=== PATIENT | male | born 1970 | race Caucasian/White ===

== ENCOUNTER 2021-08-25 17:34 | Emergency (ER) | payer MEDICARE ==
[~2021-08-25] VITALS: Ht 182.8 cm; Wt 95.3 kg
--- NOTE | 2021-08-25 19:00 | ED Integumentary General ---
General Chief Complaint: Skin/Wound Problems Stated Complaint: SPIDER BITE ON BACK Nursing Triage Note: PT AMB TRIAGE WITH COMPLAINT OF SPIDER BITE ON MID BACK. STATES HAPPENED TWO MONTHS AGO AND WAS TOLD BY PCP TO PUT WARM COMPRESSES ON IT. STATES SYMPTOMS ARE WORSENING. Source: patient, spouse Exam Limitations: no limitations History of Present Illness Date Seen by Provider: Aug 25, 2021 Time Seen by Provider: 18:31 Initial Comments Patient ER by private conveyance from home with chief complaint of abscess for the past month on his left back. He went to the [place] [facility] and had it drained about 3 weeks ago. They did not put him on antibiotics. He does not have any immunocompromise diabetes or take any compromising medications. It has continued to persist and recur. She has been draining it with peroxide soaked sewing needles about every 3 to 4 days. No fevers or chills. Allergies and Home Medications Allergies Coded Allergies: pramipexole (Verified Allergy, Unknown, 08/25/21) Patient Home Medication List Home Medication List Reviewed: Yes Review of Systems Review of Systems Constitutional: No chills, No diaphoresis EENTM: No ear discharge, No ear pain Respiratory: No cough, No short of breath Cardiovascular: No chest pain, No palpitations Gastrointestinal: No abdominal pain, No nausea Genitourinary: No discharge, No dysuria All Other Systems Reviewed Negative Unless Noted: Yes Past Fvmrpxo-Wwkezt-Xeblcc Hx Patient Social History Tobacco Use?: Yes Tobacco type used: Cigarettes Smoking Status: Current Everyday Smoker Substance use?: No Alcohol Use?: Yes Alcohol Frequency: Once in a while Pt feels they are or have been: No Immunizations Up To Date Influenza Vaccine Up-to-Date: No; Not Current Physical Exam Vital Signs Vital Signs - First Documented 08/25/21 17:59 Pulse 92 Resp 16 B/P (MAP) 158/100 (119) Pulse Ox 97 O2 Delivery Room Air Capillary Refill : Less Than 3 Seconds General Appearance: WD/WN, no apparent distress HEENT: PERRL/EOMI, pharynx normal Neck: full range of motion, normal inspection Cardiovascular: normal peripheral pulses, regular rate, rhythm Respiratory: no respiratory distress, no accessory muscle use Neurologic/Psychiatric: alert, normal mood/affect, oriented x 3 Skin: other (Dusky erythematous raised smooth nodule proximately 2 to 3 cm diameter over the left back just left of T8- 10.) Procedures/Interventions I&D : Site: Left back Blade Size: 11 I & D Procedure: betadine prep (Chlorhexidine and alcohol) Progress Wound was infiltrated with 1/2 cc of 1% lidocaine after being thoroughly cleaned. When the skin was anesthetized we made a 1 cm x 1 cm crosswise incision draining about 15 cc of thin purulent material. Loculations were broke up with a sterile cotton swab after a sterile wound culture swab was obtained. Patient tolerated the procedure. Progress/Results/Core Measures Results/Orders My Orders Orders - GINA SHOOK Wound Culture (08/25/21 18:54) Vital Signs/I&O 08/25/21 17:59 Pulse 92 Resp 16 B/P (MAP) 158/100 (119) Pulse Ox 97 O2 Delivery Room Air Blood Pressure Mean: 119 Progress Progress Note : Time: 18:57 Progress Note Recurrent abscess. Wound culture obtained and sent. We will put him on Bactrim for a week. Departure Impression Primary Impression: Abscess Disposition: HOME, SELF-CARE Condition: Stable Departure-Patient Inst. Decision time for Depature: 19:03 Referrals: NO,LOCAL PHYSICIAN (PCP/Family) Primary Care Physician Patient Instructions: Abscess Drainage, Percutaneous (DC) Add. Discharge Instructions: Keep the wound clean regular soap and water. Change the gauze dressing at least daily or more frequently if it becomes soiled. Do not put peroxide, alcohol, iodine or chlorhexidine on the wound as this will prolong wound healing. Bactrim 1 tablet twice a day for the next week to prevent recurrent infections. Take with food. Return to the ER or your primary care doctor for recurrent abscess. All discharge instructions reviewed with patient and/or family. Voiced understanding. Scripts Sulfamethoxazole/Trimethoprim (Bactrim Ds Tablet) 1 Each Tablet 1 EACH PO BID for 7 Days, #14 TAB 0 Refills Prov: GINA SHOOK 08/25/21 Work/School Note: Work Release Form Date Seen in the Emergency Department: Aug 25, 2021 Return to Work: Aug 28, 2021 Restrictions: No Restrictions GINA SHOOK Aug 25, 2021 19:00
[2021-08-25] MEDS ORDERED: SULF1TAB38 PO (19:04)
[2021-08-25 19:56] VITALS: BP 158/100
== END 2021-08-25 19:13 | disposition home or self-care (01) ==
LOC: EDUNIT# 17:34 → ER 17:38
DX: L02.212 Cutaneous abscess of back [any part, except buttock and flank] (principal); F17.210 Nicotine dependence, cigarettes, uncomplicated
CPT/HCPCS: 87070; 87077; 87186; 87205; 99282

== ENCOUNTER 2021-09-07 18:05 | Emergency (ER) | payer MEDICARE ==
[~2021-09-07] VITALS: Ht 182.8 cm; Wt 96.6 kg
[~2021-09-07 18:05] MED LIST: SULF1TAB38 PO
[2021-09-07] MEDS ORDERED: RX-ALBUTEROL INHALER 8.5 GM HFA (PROAIR) IH STA (19:45)
[2021-09-07] MEDS ORDERED: predniSONE 20 MG TAB PO ONE (19:45)
[2021-09-07] MEDS ORDERED: AZITHROMYCIN 250 MG TAB (ZITHROMAX) PO SCH (19:45)
[2021-09-07] MEDS ORDERED: AZIT250T PO (19:51)
[2021-09-07] MEDS ORDERED: PRD20T PO (19:51)
--- NOTE | 2021-09-07 19:52 | ED Cough/URI ---
General Chief Complaint: Respiratory Problems Stated Complaint: SOA / BODY ACHES / CONGESTION Source: patient Exam Limitations: no limitations History of Present Illness Date Seen by Provider: Sep 07, 2021 Time Seen by Provider: 19:50 Initial Comments To ER with a productive cough shortness of breath congestion no fevers. He does smoke cigarettes. Timing/Duration: just prior to arrival, getting worse Severity/Quality: productive cough Associated Symptoms: cough Allergies and Home Medications Allergies Coded Allergies: pramipexole (Verified Allergy, Unknown, 08/25/21) Patient Home Medication List Home Medication List Reviewed: Yes Sulfamethoxazole/Trimethoprim (Bactrim Ds Tablet) 1 Each Tablet, 1 EACH PO BID Prescribed by: GINA SHOOK on 08/25/211903 Review of Systems Review of Systems Constitutional: see HPI EENTM: see HPI Respiratory: see HPI, cough Cardiovascular: no symptoms reported Genitourinary: no symptoms reported Musculoskeletal: no symptoms reported Skin: no symptoms reported Physical Exam Capillary Refill : Height: '" Weight: lbs. oz. kg; 28.00 BMI Method: General Appearance: WD/WN, no apparent distress Eyes: Bilateral Eye Normal Inspection, Bilateral Eye PERRL, Bilateral Eye EOMI Respiratory: lungs clear, normal breath sounds, no respiratory distress, no accessory muscle use Gastrointestinal: normal bowel sounds, non tender, soft Extremities: normal range of motion, non-tender Neurologic/Psychiatric: alert, normal mood/affect, oriented x 3 Skin: normal color, warm/dry Progress/Results/Core Measures Suspected Sepsis SIRS Temperature: Pulse: Respiratory Rate: Blood Pressure / Mean: Results/Orders Lab Results Laboratory Tests Test 09/07/21 18:45 Range/Units SARS-CoV-2 RNA (RT-PCR) Not Detected Not Detecte My Orders Orders - CAROLA MCKEON APRN Covid 19 Inhouse Test (09/07/21 18:34) Chest 1 View, Ap/Pa Only (09/07/21 18:55) Rx-Albuterol Inhaler (Rx-Ventolin Hfa In (09/07/21 19:45) Prednisone Tablet (Deltasone Tablet) (09/07/21 19:45) Azithromycin Tablet (Zithromax Tablet) (09/07/21 19:45) Vital Signs/I&O Capillary Refill : Departure Impression Primary Impression: Bronchitis Disposition: 01 HOME, SELF-CARE Condition: Stable Departure-Patient Inst. Decision time for Depature: 19:51 Referrals: NO,LOCAL PHYSICIAN (PCP/Family) Primary Care Physician Patient Instructions: Acute Bronchitis Scripts Prednisone (Prednisone) 20 Mg Tab 40 MG PO DAILY, #6 TAB 0 Refills Prov: CAROLA MCKEON APRN 09/07/21 Azithromycin (Zithromax) 250 Mg Tablet 250 MG PO UD, #3 TAB TAKE 2 TABLETS TODAY, THEN TAKE 1 TABLET DAILY FOR 4 MORE DAYS Prov: CAROLA MCKEON APRN 09/07/21 CAROLA MCKEON APRN Sep 07, 2021 19:51
--- NOTE | 2021-09-07 20:09 | Diagnostic Imaging Report ---
INDICATION: Cough Frontal chest obtained at 8:02 hours p.m. Heart is borderline in size. There is minimal central vascular prominence. There is no focal infiltrate or pneumothorax or pleural fluid. IMPRESSION: Borderline heart size with minimal central vascular prominence. No focal infiltrate or pleural fluid. Dictated by: Dictated on workstation # [id number]
[2021-09-07 20:12] VITALS: BP 165/96
== END 2021-09-07 20:12 | disposition home or self-care (01) ==
LOC: EDUNIT# 18:05 → ER 18:09
DX: J40 Bronchitis, not specified as acute or chronic (principal); F17.210 Nicotine dependence, cigarettes, uncomplicated; Z20.822 Contact with and (suspected) exposure to COVID-19
CPT/HCPCS: 71045; 87636

== ENCOUNTER 2021-11-06 12:33 | Emergency (ER) | payer MEDICARE ==
[~2021-11-06] VITALS: Ht 185.5 cm; Wt 108.0 kg
[~2021-11-06 12:33] MED LIST changes: +AZIT250T PO; +PRD20T PO
[2021-11-06 13:13] LABS: BASOPHILS # (AUTO) 0.1 10^3/uL (0.0-0.1); BASOPHILS % (AUTO) 1 % (0-10); EOSINOPHILS # (AUTO) 0.3 10^3/uL (0.0-0.3); EOSINOPHILS % (AUTO) 3 % (0-10); HEMATOCRIT 50 % (40-54); HEMOGLOBIN 16.6 g/dL (13.3-17.7); LYMPHOCYTES # (AUTO) 2.1 10^3/uL (1.0-4.0); LYMPHOCYTES % (AUTO) 19 % (12-44); MEAN CORPUSCULAR HEMOGLOBIN 29 pg (25-34); MEAN CORPUSCULAR HGB CONC 33 g/dL (32-36); MEAN CORPUSCULAR VOLUME 87 fL (80-99); MEAN PLATELET VOLUME 9.7 fL (9.0-12.2); MONOCYTES # (AUTO) 0.7 10^3/uL (0.0-1.0); MONOCYTES % (AUTO) 6 % (0-12); NEUTROPHILS # (AUTO) 8.1 10^3/uL (1.8-7.8); NEUTROPHILS % (AUTO) 72 % (42-75); PLATELET COUNT 274 10^3/uL (130-400); WHITE BLOOD COUNT 11.3 10^3/uL (4.3-11.0)
[2021-11-06] MEDS ORDERED: LACTATED RINGERS 1,000 ML IV ONE (13:15)
[2021-11-06 13:26] LABS: ALBUMIN 4.5 GM/DL (3.2-4.5); POTASSIUM 4.4 MMOL/L (3.6-5.0)
[2021-11-06 13:28] LABS: CALCIUM 9.4 MG/DL (8.5-10.1)
[2021-11-06 13:29] LABS: PROTHROMBIN TIME PATIENT 13.7 SEC (12.2-14.7); TOTAL PROTEIN 7.8 GM/DL (6.4-8.2)
[2021-11-06 13:31] LABS: BILIRUBIN,TOTAL 0.4 MG/DL (0.1-1.0)
[2021-11-06 13:33] LABS: CREATININE SERUM 0.78 MG/DL (0.60-1.30)
[2021-11-06 13:35] LABS: MAGNESIUM 1.9 MG/DL (1.6-2.4)
--- NOTE | 2021-11-06 14:21 | Diagnostic Imaging Report ---
CLINICAL INDICATION: Patient with chest pain and complaints of shortness of air and decreased appetite. EXAM: Portable chest x-ray upright view. COMPARISON: Chest x-ray dated 09/07/2021. FINDINGS: Lungs/pleura: Lungs are clear. There is no pneumothorax. There is no pleural effusion. Mediastinum: Unremarkable. Pulmonary vasculature: Unremarkable. Heart: Unremarkable. Bones/extrathoracic soft tissue: Unremarkable. IMPRESSION: There is no radiographic evidence of acute cardiopulmonary process. Dictated by: Dictated on workstation # [id number]
[2021-11-06 14:52] LABS: BILIRUBIN,URINE NEGATIVE (NEGATIVE); CLARITY,URINE CLEAR; COLOR,URINE YELLOW; GLUCOSE, URINE (UA) NEGATIVE (NEGATIVE); KETONES,URINE NEGATIVE (NEGATIVE); LEUKOCYTE ESTERASE ,URINE NEGATIVE (NEGATIVE); NITRITE,URINE NEGATIVE (NEGATIVE); PROTEIN,URINE NEGATIVE (NEGATIVE)
[2021-11-06 15:05] LABS: BACTERIA,URINE NEGATIVE /HPF; WBC,URINE RARE /HPF
[2021-11-06] MEDS ORDERED: SULF1TAB38 PO (16:07)
--- NOTE | 2021-11-06 16:07 | ED General ---
General Chief Complaint: General Problems/Pain Stated Complaint: DIZZY, R SIDE NUMBNESS, EXHAUSTED Nursing Triage Note: PT AMB TO [facility] 1 W C/O SOA, DECREASED APPETITE, AND DIZZINESS SX SUNDAY. PT ALSO C/O RT SIDE FACIAL NUMBNESS AND FATIGUE X1 MONTH. PT REPORTS HE HAS A "BITE" ON HIS BACK X6 MONTHS THAT HAS BEEN DRAINED HERE AND "KEEPS FILLING BACK UP." PT REPORTS HE TRAVELED TO [place] THIS PAST WEEK. DENIES PAIN, A&OX4. Source of Information: Patient Exam Limitations: No Limitations Allergies and Home Medications Allergies Coded Allergies: pramipexole (Verified Allergy, Unknown, 08/25/21) Patient Home Medication List Azithromycin (Zithromax) 250 Mg Tablet, 250 MG PO UD Prescribed by: CAROLA MCKEON on 09/07/211950 Prednisone (Prednisone) 20 Mg Tab, 40 MG PO DAILY Prescribed by: CAROLA MCKEON on 09/07/211950 Sulfamethoxazole/Trimethoprim (Bactrim Ds Tablet) 1 Each Tablet, 1 EACH PO BID Prescribed by: GINA SHOOK on 08/25/211903 Sulfamethoxazole/Trimethoprim (Bactrim Ds Tablet) 1 Each Tablet, 1 EACH PO BID Prescribed by: AMILCAR DONOVAN on 11/06/21 1607 Past Wjqqcww-Nbbwcb-Qbgate Hx Patient Social History Tobacco Use?: Yes Tobacco type used: Cigarettes Smoking Status: Current Everyday Smoker Use of E-Cig and/or Vaping dev: No Substance use?: No Alcohol Use?: No Immunizations Up To Date Influenza Vaccine Up-to-Date: No; Not Current First/Initial COVID19 Vaccinat: NONE Second COVID19 Vaccination Ricky: NONE Third COVID19 Vaccination Date: NONE 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 oz. kg; 31.00 BMI Method: Progress/Results/Core Measures Suspected Sepsis SIRS Temperature: Pulse: 101 Respiratory Rate: 22 Laboratory Tests 11/06/21 13:05: White Blood Count 11.3H Blood Pressure 144 /100 Mean: 115 Laboratory Tests 11/06/21 13:05: Creatinine 0.78, INR Comment 1.0, Platelet Count 274, Total Bilirubin 0.4 Results/Orders Lab Results Laboratory Tests Test 11/06/21 13:05 11/06/21 14:44 Range/Units White Blood Count 11.3 H 4.3-11.0 10^3/uL Red Blood Count 5.79 H 4.30-5.52 10^6/uL Hemoglobin 16.6 13.3-17.7 g/dL Hematocrit 50 40-54 % Mean Corpuscular Volume 87 80-99 fL Mean Corpuscular Hemoglobin 29 25-34 pg Mean Corpuscular Hemoglobin Concent 33 32-36 g/dL Red Cell Distribution Width 12.7 10.0-14.5 % Platelet Count 274 130-400 10^3/uL Mean Platelet Volume 9.7 9.0-12.2 fL Immature Granulocyte % (Auto) 0 % Neutrophils (%) (Auto) 72 42-75 % Lymphocytes (%) (Auto) 19 12-44 % Monocytes (%) (Auto) 6 0-12 % Eosinophils (%) (Auto) 3 0-10 % Basophils (%) (Auto) 1 0-10 % Neutrophils # (Auto) 8.1 H 1.8-7.8 10^3/uL Lymphocytes # (Auto) 2.1 1.0-4.0 10^3/uL Monocytes # (Auto) 0.7 0.0-1.0 10^3/uL Eosinophils # (Auto) 0.3 0.0-0.3 10^3/uL Basophils # (Auto) 0.1 0.0-0.1 10^3/uL Immature Granulocyte # (Auto) 0.0 0.0-0.1 10^3/uL Prothrombin Time 13.7 12.2-14.7 SEC INR Comment 1.0 0.8-1.4 Activated Partial Thromboplast Time 34 24-35 SEC D-Dimer <= 0.27 0.00-0.49 UG/ML Sodium Level 138 135-145 MMOL/L Potassium Level 4.4 3.6-5.0 MMOL/L Chloride Level 104 98-107 MMOL/L Carbon Dioxide Level 21 21-32 MMOL/L Anion Gap 13 5-14 MMOL/L Blood Urea Nitrogen 13 7-18 MG/DL Creatinine 0.78 0.60-1.30 MG/DL Estimat Glomerular Filtration Rate 109 BUN/Creatinine Ratio 17 Glucose Level 116 H 70-105 MG/DL Calcium Level 9.4 8.5-10.1 MG/DL Corrected Calcium 9.0 8.5-10.1 MG/DL Magnesium Level 1.9 1.6-2.4 MG/DL Total Bilirubin 0.4 0.1-1.0 MG/DL Aspartate Amino Transf (AST/SGOT) 19 5-34 U/L Alanine Aminotransferase (ALT/SGPT) 37 0-55 U/L Alkaline Phosphatase 78 40-136 U/L Myoglobin 25.1 10.0-92.0 NG/ML Troponin I < 0.028 <0.028 NG/ML C-Reactive Protein High Sensitivity 0.37 0.00-0.50 MG/DL B-Type Natriuretic Peptide < 10.0 <100.0 PG/ML Total Protein 7.8 6.4-8.2 GM/DL Albumin 4.5 3.2-4.5 GM/DL Procalcitonin 0.02 <0.10 NG/ML Influenza Type A (RT-PCR) Not Detected Not Detecte Influenza Type B (RT-PCR) Not Detected Not Detecte SARS-CoV-2 RNA (RT-PCR) Not Detected Not Detecte Urine Color YELLOW Urine Clarity CLEAR Urine pH 6.0 5-9 Urine Specific [place] 1.020 1.016-1.022 Urine Protein NEGATIVE NEGATIVE Urine Glucose (UA) NEGATIVE NEGATIVE Urine Ketones NEGATIVE NEGATIVE Urine Nitrite NEGATIVE NEGATIVE Urine Bilirubin NEGATIVE NEGATIVE Urine Urobilinogen 0.2 < = 1.0 MG/DL Urine Leukocyte Esterase NEGATIVE NEGATIVE Urine RBC (Auto) NEGATIVE NEGATIVE Urine RBC NONE /HPF Urine WBC RARE /HPF Urine Crystals NONE /LPF Urine Bacteria NEGATIVE /HPF Urine Casts NONE /LPF Urine Mucus SMALL H /LPF Urine Culture Indicated NO My Orders Orders - AMILCAR ZELAYA MD Cbc With Automated Diff (11/06/21 13:00) Magnesium (11/06/21 13:00) Chest 1 View, Ap/Pa Only (11/06/21 13:00) Ekg Tracing (11/06/21 13:00) Comprehensive Metabolic Panel (11/06/21 13:00) Myoglobin Serum (11/06/21 13:00) Protime With Inr (11/06/21 13:00) Partial Thromboplastin Time (11/06/21 13:00) O2 (11/06/21 13:00) Monitor-Rhythm Ecg Trace Only (11/06/21 13:00) Ed Iv/Invasive Line Start (11/06/21 13:00) Bnp [place] (11/06/21 13:00) Fibrin Degradation Products (11/06/21 13:00) Troponin I [place] (11/06/21 13:00) Procalcitonin (Pct) (11/06/21 13:00) Hs C Reactive Protein (11/06/21 13:00) Covid 19 Inhouse Test (11/06/21 13:00) Influenza A And B By Pcr (11/06/21 13:00) Lactated Ringers (Lr 1000 Ml Iv Solution (11/06/21 13:15) Ua Culture If Indicated (11/06/21 14:10) Medications Given in ED Current Medications Medications Dose Ordered Sig/Mireya Route Start Time Stop Time Status Last Admin Dose Admin Lactated Ringer's 1,000 ml @ 0 mls/hr Q0M ONCE IV 11/06/21 13:15 11/06/21 13:16 DC 11/06/21 13:16 0 MLS/HR Vital Signs/I&O 11/06/21 11/06/21 12:56 16:14 Temp 36.4 Pulse 101 96 Resp 22 20 B/P (MAP) 144/100 (115) 131/96 Pulse Ox 98 O2 Delivery Room Air Room Air Capillary Refill : Less Than 3 Seconds Blood Pressure Mean: 115 ECG Initial ECG Impression Date: Nov 06, 2021 Initial ECG Impression Time: 13:11 Initial ECG Rate: 86 Initial ECG Rhythm: Normal Sinus Initial ECG Impression: Normal Comment Normal sinus rhythm with no ST elevation or depression. No abnormal intervals or axis deviation. Departure Impression Primary Impression: Infected sebaceous cyst Additional Impressions: Dizziness Shortness of breath Fatigue Qualified Codes: R53.83 - Other fatigue Right facial numbness Disposition: 01 HOME, SELF-CARE Condition: Improved Departure-Patient Inst. Decision time for Depature: 16:05 Referrals: NO,LOCAL PHYSICIAN (PCP/Family) Primary Care Physician Patient Instructions: SEBACEOUS CYST Add. Discharge Instructions: Establish with a primary care provider soon as possible. After you complete antibiotics for your sebaceous cyst, you should arrange for it to be removed to prevent recurrent infections. Drink plenty of clear liquids to stay well-hydrated. Call with questions or concerns. Return to the ER if you have worsening symptoms. All discharge instructions reviewed with patient and/or family. Voiced understanding. Scripts Sulfamethoxazole/Trimethoprim (Bactrim Ds Tablet) 1 Each Tablet 1 EACH PO BID, #20 TAB Prov: AMILCAR ZELAYA MD 11/06/21 AMILCAR ZELAYA MD Nov 06, 2021 16:07
[2021-11-06 16:14] VITALS: BP 131/96
== END 2021-11-06 16:14 | disposition home or self-care (01) ==
LOC: EDUNIT# 12:33 → ER 12:36
DX: L72.3 Sebaceous cyst (principal); R42 Dizziness and giddiness; R06.02 Shortness of breath; R53.83 Other fatigue; R20.0 Anesthesia of skin; I10 Essential (primary) hypertension; F17.210 Nicotine dependence, cigarettes, uncomplicated; Z20.822 Contact with and (suspected) exposure to COVID-19
CPT/HCPCS: 36415; 71045; 80053; 81000; 83735; 83874; 83880; 84145; 84484; 85025; 85379; 85610; 85730; 86141; 87636; 93005; 93041